=== PATIENT | female | born 1975 | race Caucasian/White ===

== ENCOUNTER 2019-01-01 14:53 | Emergency (ER) | payer SELFPAY ==
[2019-01-01 15:05] VITALS: BP 112/68
--- NOTE | 2019-01-01 15:08 | ED Physician Documentation ---
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 Patient states the pain is 7/10 and hurts to walk or put on her shoe. Onset: days ago (2) Timing: still present Severity: moderate - ROS CONST: no problems EYES/ENT: none CVS/RESP: none GI/: none MS/SKIN/LYMPH: none NEURO/PSYCH: denies: headache - PAST HX Past History: none Other History: none Surgeries/Procedures: none Allergies/Adverse Reactions: Allergies Allergy/AdvReac Type Severity Reaction Status Date / Time divalproex sodium Allergy Severe Hives Verified 01/01/19 15:06 [From Depakote] phenytoin sodium Allergy Severe Anaphylaxis Verified 01/01/19 15:06 [From Dilantin] phenytoin sodium extended Allergy Severe Anaphylaxis Verified 01/01/19 15:06 [From Dilantin] latex [Latex] Allergy Intermediate Itchy Skin Verified 01/01/19 15:06 Home Medications: Ambulatory Orders Medication Instructions Recorded Amoxicillin/Potassium Clav 1 each PO Q12 #14 tablet 01/01/19 [Augmentin 875Mg/125Mg] Methylprednisolone [Medrol] 4 mg PO DIRECTED #1 tab.ds.pk 01/01/19 - SOCIAL HX Smoking History: cigarettes Alcohol Use: none Drug Use: none - FAMILY HX Family History: No - VITAL SIGNS Vital Signs: Vital Signs Temp Pulse Resp BP Pulse Ox 88 16 112/68 99 01/01/19 15:02 01/01/19 15:02 01/01/19 15:02 01/01/19 15:02 - REVIEWED ASSESSMENTS Nursing Assessment Reviewed: Yes Vitals Reviewed: Yes General Adult Physical Exam - PHYSICAL EXAM GENERAL APPEARANCE: no distress EENT: ANNE NECK: supple RESPIRATORY: no resp distress, breath sounds normal CVS: reg rate & rhythm, heart sounds normal ABDOMEN: soft, normal bowel sounds, no abdominal bruit, no distension RECTAL: normal exam BACK: normal inspection SKIN: warm/dry EXTREMITIES: other (lef great toe redness at lateral corner of nail, swelling. Consistent with ingrown toenail) NEURO: oriented X3, sensation nml, mood/affect nml Discharge Clincal Impression: Ingrown toenail of left foot Prescriptions: Amoxicillin/Potassium Clav [Augmentin 875Mg/125Mg] 1 each PO Q12 #14 tablet Methylprednisolone [Medrol] 4 mg PO DIRECTED #1 tab.ds.pk Referrals: Primary Doctor,No [Primary Care Provider] - 2 Days Additional Instructions: 1. Take antibiotics until gone 2. Take Medrol dose pack as directed 3. 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 His office will be calling you with appointment information 4. Return to ER for new or worsening symptoms Condition: Stable Disposition: 01 HOME, SELF-CARE Decision to Admit: NO Date of Decison to Admit: 01/01/19 Decision Time: 15:19
== END 2019-01-01 15:27 | disposition home or self-care (01) ==
LOC: ED 14:53
DX: L60.0 Ingrowing nail (principal)
CPT/HCPCS: 99283; 99284